=== PATIENT | female | born 2000 | race Hispanic/Latino ===

== ENCOUNTER 2025-01-28 21:19 | Emergency (ER) | payer MEDICAID ==
[~2025-01-28] VITALS: Ht 157.5 cm; Wt 91.2 kg
[2025-01-28] MEDS: PANTOPrazole 40 MG/VIAL IVP ONE (22:05)
[2025-01-28] MEDS: 0.9% NACL 500ML IV.SOLN 500 ML IV ONE (22:06)
[2025-01-28 22:12] LABS: BASOPHILS # (AUTO) 0.05 K/uL (0.00-0.20); BASOPHILS % (AUTO) 0.4 % (0.0-5.0); EOSINOPHILS % (AUTO) 1.5 % (0.0-8.0); HEMATOCRIT 40.7 % (36-48); IMMATURE GRANULOCYTE ABSOLUTE 0.07 K/uL (0-1); LYMPHOCYTES # (AUTO) 2.3 K/uL (1.0-4.8); LYMPHOCYTES % (AUTO) 17.2 % (21.0-51.0); MEAN CORPUSCULAR HEMOGLOBIN 27.8 pg (27.0-33.0); MEAN CORPUSCULAR HGB CONC 31.9 g/dL (32.0-36.0); MONOCYTES # (AUTO) 0.9 K/uL (0.1-1.0); MONOCYTES % (AUTO) 6.8 % (3.0-13.0); NEUTROPHILS # (AUTO) 9.8 K/uL (1.8-7.7); NEUTROPHILS % (AUTO) 73.6 % (40.0-77.0); PLATELET COUNT (AUTO) 311 K/uL (130-400); RED BLOOD CELL COUNT(AUTO) 4.68 MIL/uL (4.00-5.50); RED CELL DISTRIBUTION WIDTH 13.4 % (11.0-15.5); WHITE BLOOD COUNT (AUTO) 13.3 K/uL (4.8-10.8)
--- NOTE | 2025-01-28 22:14 | ERN ---
ED Note History of Present Illness Stated Complaint: C/O ABD PAIN, VOMITING BLOOD TODAY Chief Complaint: Hematemesis/Vomiting Blood Time Seen by MD: 21:32 Dictation: This is a 24-year-old female who presented to the emergency room with complaints of severe epigastric pain, nausea and vomitings and she stated that she vomited some blood. Patient stated that she had EGD on 01/19/2025 and does not know the results yet as she has yet to follow up with Dr. Hilton. She was recommended to take omeprazole/pantoprazole as needed. I do not have the EGD results for review at this time. Patient stated that she felt discomfort in the epigastric area and vomited with small amounts of specks of blood in the emesis. Family was concerned and brought her in to the ER for evaluation Temperature 98.6� pulse 57 respirations 20 blood pressure 109/63 with a pulse oximetry of 98% on room air She only carries a diagnosis of gastritis where it is unclear if she has peptic ulcer disease or H pylori. Patient also indicated that she had an ultrasound of the abdomen yesterday that the results are not available at this time. Allergies: Coded Allergies: No Known Allergies (Unverified Allergy, Unknown, 01/28/25) Home Meds Active Scripts Dicyclomine HCl (Bentyl) 20 Mg Tab, 1 TAB PO BID for irritable bowel symptoms for 3 Days, #7 TAB 0 Refills Prov:SHERRY TOMLINSON MD 01/28/25 Ondansetron (Ondansetron Odt) 4 Mg Tab.rapdis, 4 MG PO Q6HPRN PRN for nausea, #16 TAB 0 Refills Prov:SHERRY TOMLINSON MD 01/28/25 Past Medical History Past Medical History: Other Additional Past Medical Hx: GASTRITIS Surgical History: Other Surgical History Other: UPPER ABD ENDOSCOPY (01/19/2025) Family History: Negative Social History: Negative RN Note Reviewed/Agreed w/PFSH: Yes Review of System Dictation Constitutional: Negative for fever,chills, and weight loss Eyes: Negative for injury, pain,redness, and discharge ENT: Negative for injury,pain or swelling Cardiovascular: Negative for chest pain, palpitations, and edema Respiratory: Negative for shortness of breath, cough, and wheezing, Abdomen/GI: Positive for abdominal pain, nausea, vomiting, denies diarrhea, and constipation. Positive for very small amounts of specks of vomitings blood. Back: Negative for injury and pain : Negative for injury, bleeding and discharge MS/Extremity: Negative for injury and deformity Skin: Negative for rash, and discoloration Neuro: Negative for headache, weakness, numbness, tingling, and seizure Psych: Negative for suicide ideation, homicidal ideation, and hallucinations Initial Vital Sign VS Vital Signs Date Time Temp Pulse Resp B/P (MAP) Pulse Ox O2 Delivery O2 Flow Rate FiO2 01/28/25 21:24 98.6 57 20 109/63 99 Room Air 01/28/25 22:00 0 21 Physical Exam Dictation General: awake, alert, NAD Head/Face: Normocephalic, atraumatic Eyes: PERRL, EOMI, vision at baseline ENT: oral cavity clear, TMs clear, no signs of infection Neck: Trachea midline, supple, no nuchal rigidity Cardiovascular: RRR, normal S1/S2, No MRGs, no JVD Respiratory: CTAB, no respiratory distress, No rales or wheezes Abdomen: Soft, non-tender, non-distended, normal bowel sounds, no guarding or rebound. Skin: Warm, dry, normal turgor, no rash MS/Extremity: Pulses equal, no cyanosis, neurovascular intact, FROM Neuro: COAx4, GCS 15, strength 5/5, CN 2-12 intact, normal cerebellar exam, normal gait, Psych: Normal behavior, mood, and affect normal Extremities-trace edema without any palpable cords, Homans sign is negative Results (Laboratory/Radiology) Laboratory/Radiology Laboratory Tests Test 01/28/25 21:56 White Blood Count 13.3 K/uL (4.8-10.8) H Red Blood Count 4.68 MIL/uL (4.00-5.50) Hemoglobin 13.0 g/dL (12.0-16.0) Hematocrit 40.7 % (36-48) Mean Corpuscular Volume 87.0 fL (79-99) Mean Corpuscular Hemoglobin 27.8 pg (27.0-33.0) Mean Corpuscular Hemoglobin Concent 31.9 g/dL (32.0-36.0) L Red Cell Distribution Width 13.4 % (11.0-15.5) Platelet Count 311 K/uL (130-400) Mean Platelet Volume 10.4 fL (7.5-10.5) Immature Granulocyte % (Auto) 0.5 % (0-1) Neutrophils (%) (Auto) 73.6 % (40.0-77.0) Lymphocytes (%) (Auto) 17.2 % (21.0-51.0) L Monocytes (%) (Auto) 6.8 % (3.0-13.0) Eosinophils (%) (Auto) 1.5 % (0.0-8.0) Basophils (%) (Auto) 0.4 % (0.0-5.0) Neutrophils # (Auto) 9.8 K/uL (1.8-7.7) H Lymphocytes # (Auto) 2.3 K/uL (1.0-4.8) Monocytes # (Auto) 0.9 K/uL (0.1-1.0) Eosinophils # (Auto) 0.20 K/uL (0.00-0.70) Basophils # (Auto) 0.05 K/uL (0.00-0.20) Absolute Immature Granulocyte (auto 0.07 K/uL (0-1) Nucleated Red Blood Cells 0.0 % (0.0-0.19) Sodium Level 139 mmol/L (136-145) Potassium Level 4.1 mmol/L (3.5-5.1) Chloride Level 105 mmol/L (101-111) Carbon Dioxide Level 29 mmol/L (21-32) Blood Urea Nitrogen 14 mg/dL (7-18) Creatinine 0.7 mg/dL (0.5-1.0) Glomerular Filtration Rate Calc 122 mL/min (>90) Random Glucose 108 mg/dL (70-105) H Total Calcium 8.9 mg/dL (8.5-10.1) Serum Test, Qualitative NEGATIVE (NEGATIVE) Labs Reviewed?: Yes ED Course ED Course Orders Procedure Category Date Status Time Cbc With Differential LAB 01/28/25 Complete 21:39 Testing, LAB 01/28/25 Complete Serum Hcg 21:39 Pantoprazole 40mg Inj PHA 01/28/25 Complete (Protonix 40mg Inj 22:00 Basic Metabolic Panel LAB 01/28/25 Complete 21:39 0.9% Nacl 500ml PHA 01/28/25 Complete Iv.Soln (Ns 500ml 22:00 Ondansetron 4mg Inj PHA 01/28/25 Complete (Zofran 4mg Inj) 22:34 Ondansetron 4mg Inj PHA 01/28/25 Complete (Zofran 4mg Inj) 22:36 Morphine 2mg Syg PHA 01/28/25 Complete (Morphine 2mg Syg) 23:00 Current Medications Medications (Trade) Dose Ordered Sig/Ori Route PRN Reason Start Time Stop Time Status Last Admin Dose Admin Morphine Sulfate (morPHINE 2MG SYG) 2 mg ONCE ONCE IVP 01/28/25 23:00 01/28/25 23:03 DC Ondansetron HCl (zoFRAN 4MG INJ) 4 mg ONCE STAT IVP 01/28/25 22:34 01/28/25 22:37 DC 01/28/25 22:41 Ondansetron HCl (zoFRAN 4MG INJ) 4 mg STK-MED ONCE .ROUTE 01/28/25 22:36 01/28/25 22:36 DC Pantoprazole Sodium (PROTonix 40MG INJ) 40 mg ONCE ONCE IVP 01/28/25 22:00 01/28/25 22:01 DC 01/28/25 22:05 Sodium Chloride 500 ml @ 0 mls/hr ONCE ONCE IV 01/28/25 22:00 01/28/25 22:01 DC 01/28/25 22:06 Vital Signs Date Time Temp Pulse Resp B/P (MAP) Pulse Ox O2 Delivery O2 Flow Rate FiO2 01/29/25 00:05 98.1 62 14 114/72 99 Room Air* 0 21 01/28/25 23:05 98.6 56 18 112/66 100 Room Air* 0 21 01/28/25 22:00 98.6 56 18 112/66 100 Room Air* 0 21 01/28/25 21:24 98.6 57 20 109/63 99 Room Air We will perform diagnostic labs, advanced imaging and administer medications according to the patient's complaint. Once the results are available, will review and personally interpreted the labs to rule out any acute life- threatening emergency the trach require immediate intervention and treatment. I will then re-evaluate the patient after treatment and diagnostic exams have return to determine whether the patient requires any further testing, can safely be discharged home or need further admission to hospital for additional treatment and evaluation. Medical Decision Making MDM MDM: Differential diagnosis: Gastritis, peptic ulcer disease, H pylori infection, esophagitis Rationale: Tests considered and ordered secondary to shared decision making include: Previous outside records reviewed: Old ER visits. Risk of complication and/or morbidity or mortality of patient management: None Medications-Per medication reconciliation Need for hospitalization: Patient does not meet criteria for hospitalization. Need for emergency major/minor surgery: No There are no social concerns with this patient. Prescription drug management Prescriptions will include symptomatic care Patient's prior external medical records from other ER visits were reviewed by me as indicated. Prior testing and results from previous visits were reviewed. Prior tests were taken into account with medical decision making and resource utilization, independent historian/historians were used to obtain complete medical history. I independently interpreted the test that were performed, results were reviewed by me and considered findings on radiology if ordered. Medical management and examination interpretation discussions were had by me with other qualified healthcare professionals as indicated for the patient's care. Problem List Problem List: (1) Nausea & vomiting (2) Gastritis DX & DISP Disposition: Discharge Departure Impression: Primary Impression: Gastritis Additional Impression: Nausea & vomiting Condition: Stable Scripts Dicyclomine HCl (Bentyl) 20 Mg Tab 1 TAB PO BID for irritable bowel symptoms for 3 Days, #7 TAB 0 Refills Prov: SHERRY TOMLINSON MD 01/28/25 Ondansetron (Ondansetron Odt) 4 Mg Tab.rapdis 4 MG PO Q6HPRN PRN for nausea, #16 TAB 0 Refills Prov: SHERRY TOMLINSON MD 01/28/25 Additional Instructions: Patient and the caregiver have been informed of all the diagnostic tests and the imaging conducted during the today's visit to the emergency room and has verbalized understanding of the results I have personally reviewed and interpreted all diagnostic exams performed here in the ER today as well as the vital signs documented by the nursing staff. The patient is now being discharged to home and should follow up with the primary care physician or the specialist as directed by the ER staff. Follow-up with primary care provider in 1 to 2 days. Take medications as directed here in the emergency room. Okay to continue home medications unless otherwise discussed during your visit in the emergency room today. Return to y our nearest emergency room if symptoms worsen or if there is no improvement. Call 911 if you need immediate assistance. Take Tylenol or Motrin [id number] as needed and if no contraindications are present. Increase oral hydration. A wound culture or urine culture was ordered here in the emergency room department please follow-up with primary care provider and advise them to get repeat ports from our facility. If you had any Ye wrap/splints that were applied here, please do not remove them until you see your primary care or specialty. Patient is scheduled to see the GI doctor for follow-up of EGD and ultrasound results Referrals: SELF,REFERRAL (PCP) SHERRY TOMLINSON MD January 28, 2025 22:14
[2025-01-28 22:21] LABS: CREATININE 0.7 mg/dL (0.5-1.0); POTASSIUM 4.1 mmol/L (3.5-5.1)
[2025-01-28] MEDS: ondanSETRON 4MG INJ IVP STA (22:41)
[2025-01-28] MEDS: ondanSETRON 4MG INJ ONE (22:41)
[2025-01-28] MEDS ORDERED: ONDA-243 PO (23:54)
[2025-01-28] MEDS ORDERED: DICY20TA2 PO (23:54)
[2025-01-29 00:05] VITALS: BP 114/72; PULSE 62; RESP 14; TEMP 98.1; O2SAT 99
[2025-01-29] MEDS: morPHINE 2 MG SYG IVP ONE (00:21)
== END 2025-01-29 00:30 | disposition home or self-care (01) ==
LOC: EDH 21:19
DX: K29.70 Gastritis, unspecified, without bleeding (principal); Z79.899 Other long term (current) drug therapy
CPT/HCPCS: 99284; 96374; 96375; 80048; 84703; 85025; 36415; J7040; J2405; J2470

== ENCOUNTER 2025-05-06 09:23 | Inpatient (IN) | payer SELFPAY ==
[~2025-05-06] VITALS: Ht 157.5 cm; Wt 87.1 kg
[~2025-05-06 09:23] MED LIST: DICY20TA2 PO; ONDA-243 PO
--- NOTE | 2025-05-06 09:32 | ERN ---
General Chief Complaint: Abdominal Pain Stated Complaint: ABDOMINAL PAIN Time Seen by MD: 09:24 Source: patient History of Present Illness Initial Comments Patient is a 24-year-old female coming in complaining of epigastric and right quadrant pain. Per patient she was told couple of months ago with a she had gallstones. 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 Allergies: Coded Allergies: No Known Allergies (Unverified Allergy, Unknown, 01/28/25) Home Meds Active Scripts Dicyclomine HCl (Bentyl) 20 Mg Tab, 1 TAB PO BID for irritable bowel symptoms for 3 Days, #7 TAB 0 Refills Prov:SHERRY TOMLINSON MD 01/28/25 Ondansetron (Ondansetron Odt) 4 Mg Tab.rapdis, 4 MG PO Q6HPRN PRN for nausea, #16 TAB 0 Refills Prov:SHERRY TOMLINSON MD 01/28/25 Past Medical History Past Medical History: Other Medical History Other: GASTRITIS Past Surgical History: Other Surgical History Other: UPPER ABD ENDOSCOPY (01/19/2025) Family History Family History: Negative Social History Social History: Negative Results Laboratory and Microbiology Lab and Micro Result Laboratory Tests Test 05/06/25 09:37 05/06/25 10:19 White Blood Count 10.2 K/uL (4.8-10.8) Red Blood Count 4.78 MIL/uL (4.00-5.50) Hemoglobin 13.1 g/dL (12.0-16.0) Hematocrit 40.6 % (36-48) Mean Corpuscular Volume 84.9 fL (79-99) Mean Corpuscular Hemoglobin 27.4 pg (27.0-33.0) Mean Corpuscular Hemoglobin Concent 32.3 g/dL (32.0-36.0) Red Cell Distribution Width 14.0 % (11.0-15.5) Platelet Count 332 K/uL (130-400) Mean Platelet Volume 10.2 fL (7.5-10.5) Immature Granulocyte % (Auto) 0.5 % (0-1) Neutrophils (%) (Auto) 63.3 % (40.0-77.0) Lymphocytes (%) (Auto) 25.0 % (21.0-51.0) Monocytes (%) (Auto) 8.7 % (3.0-13.0) Eosinophils (%) (Auto) 2.0 % (0.0-8.0) Basophils (%) (Auto) 0.5 % (0.0-5.0) Neutrophils # (Auto) 6.5 K/uL (1.8-7.7) Lymphocytes # (Auto) 2.6 K/uL (1.0-4.8) Monocytes # (Auto) 0.9 K/uL (0.1-1.0) Eosinophils # (Auto) 0.20 K/uL (0.00-0.70) Basophils # (Auto) 0.05 K/uL (0.00-0.20) Absolute Immature Granulocyte (auto 0.05 K/uL (0-1) Nucleated Red Blood Cells 0.0 % (0.0-0.19) Sodium Level 134 mmol/L (136-145) L Potassium Level 3.4 mmol/L (3.5-5.1) L Chloride Level 104 mmol/L (101-111) Carbon Dioxide Level 28 mmol/L (21-32) Blood Urea Nitrogen 15 mg/dL (7-18) Creatinine 0.9 mg/dL (0.5-1.0) Glomerular Filtration Rate Calc 90 mL/min (>90) Random Glucose 112 mg/dL (70-105) H Total Calcium 8.8 mg/dL (8.5-10.1) Total Bilirubin 0.3 mg/dL (0.2-1.0) Aspartate Amino Transf (AST/SGOT) 20 U/L (10-37) Alanine Aminotransferase (ALT/SGPT) 28 U/L (12-78) Alkaline Phosphatase 95 U/L (50-136) Total Protein 7.2 g/dL (6.0-8.3) Albumin 3.6 g/dL (3.5-5.0) Lipase 28 U/L (16-77) Human Chorionic Gonadotropin, Quant 0 mIU/mL (0-5) Urine Color YELLOW (YELLOW) Urine Appearance CLOUDY (CLEAR) H Urine pH 5.5 (5.0-8.0) Urine Specific [place] 1.040 (1.001-1.031) Urine Protein 20 mg/dL (NEGATIVE) H Urine Glucose (UA) NEGATIVE mg/dL (NEGATIVE) Urine Ketones 5 mg/dL (NEGATIVE) H Urine Occult Blood NEGATIVE (NEGATIVE) Urine Nitrate NEGATIVE (NEGATIVE) Urine Bilirubin NEGATIVE mg/dL (NEGATIVE) Urine Urobilinogen 2.0 mg/dL (0.2-1.0) H Urine Leukocyte Esterase NEGATIVE Alberto/uL Urine RBC 2-5 /HPF (0-1) H Urine WBC 6-10 /HPF (0-1) H Urine Squamous Epithelial Cells MANY /HPF (0-2) Urine Bacteria RARE /HPF (None Seen) Urine Opiates Screen NEGATIVE (NEGATIVE) Urine Barbiturates Screen NEGATIVE (NEGATIVE) Urine Phencyclidine Screen NEGATIVE (NEGATIVE) Urine Amphetamines Screen NEGATIVE (NEGATIVE) Urine Benzodiazepines Screen NEGATIVE (NEGATIVE) Urine Cocaine Screen NEGATIVE (NEGATIVE) Urine Marijuana (THC) Screen NEGATIVE (NEGATIVE) Labs Reviewed?: Yes EKG/XRAY/US/CT/MRI Ultrasound Comment IMAGING REPORT Signed PATIENT: YAAKOV ARCHULETA MR#: [id number] : 2000 SEX: F AGE: 24 LOCATION: [facility] ORDER 7 STATUS: [facility] REPORT#: [id number] SERVICE 5 REASON: Adominal Pain ORDERING PHYSICIAN: AUGUSTINA STROUD MD PROCEDURE: ABDRUQLTD - US ABDOMINAL RUQ\LTD US ABDOMINAL RUQ\E\LTD HISTORY: Adominal Pain 24-year-old female with abdominal pain COMPARISON: None FINDINGS: There is normal sonographic appearance of the liver. There are no focal liver masses. The liver is not enlarged.There are multiple gallstones and sludge seen in the gallbladder. The gallbladder wall thickness is normal. The gallbladder wall thickness is 0.2 cm.. Common duct is normal. The common bile duct measures 0.5 cm. Right kidney is normal with no evidence of mass, hydronephrosis or stone.The pancreas is normal size normal echotexture. There is no mass or free fluid seen in the right upper quadrant. IMPRESSION: 1. Cholelithiasis DICTATED BY: GERMANIA ALEGRIA MD DATE: 05/06/25 1031 ELECTRONICALLY SIGNED BY: GERMANIA ALEGRIA MD DATE: 05/06/[address] Scan Comment IMAGING REPORT Signed PATIENT: YAAKOV ARCHULETA MR#: [id number] : 2000 SEX: F AGE: 24 LOCATION: ED ORDER 1036 STATUS: REG ER REPORT#: [id number] SERVICE 1035 REASON: abd pain ORDERING PHYSICIAN: AUGUSTINA STROUD MD PROCEDURE: ABD PEL WO - CT ABDOMEN/PELVIS W/O CONTRAST CT ABDOMEN/PELVIS W/O CONTRAST REASON: abd pain COMPARISON: None. FINDINGS: Lung bases are clear. There are no focal liver lesions. There are normal-appearing kidneys.. Spleen and pancreas appear unremarkable. The gallbladder appears normal as well. Bowel loops appear unremarkable. This includes normal appearance of the appendix There is no evidence of free fluid or intraperitoneal air. There are no focal fluid collections. Aorta and retroperitoneum appear normal as do pelvic soft tissue structures. The anterior abdominal wall is intact. Osseous structures appear unremarkable. 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 There is no mass or free fluid seen in the pelvis. IMPRESSION: 1. Negative noncontrast CT abdomen and pelvis. CT was performed with one or more following dose reduction techniques: automated exposure control, adjustment of the mA and kv according to patient's size, or use of a iterative reconstruction technique. DICTATED BY: GERMANIA ALEGRIA MD DATE: 05/06/25 115 ELECTRONICALLY SIGNED BY: GERMANIA ALEGRIA MD DATE: 05/06/25 115 [facility] MDM: Differential diagnosis: Intractable nausea and vomiting, abdominal pain, cholelithiasis, Rationale: Tests considered and ordered secondary to shared decision making include: labs, ECG and radiology Previous outside records reviewed: Old ER visits. Risk of complication and/or morbidity or mortality of patient management: None Medications-Per medication reconciliation Need for hospitalization: Patient does meet criteria for hospitalization. Need for emergency major/minor surgery: No There are no social concerns with this patient. Prescription drug management Prescriptions will include symptomatic care Patient's prior external medical records from other ER visits were reviewed by me as indicated. Prior testing and results from previous visits were reviewed. Prior tests were taken into account with medical decision making and resource utilization, independent historian/historians were used to obtain complete medic al history. I independently interpreted the test that were performed, results were reviewed by me and considered findings on radiology if ordered. Medical management and examination interpretation discussions were had by me with other qualified healthcare professionals as indicated for the patient's care. She will be admitted under the care of hospitalist group for ongoing management. ED Course Orders Procedure Category Date Status Time Cbc With Differential LAB 05/06/25 Complete 09: Comprehensive LAB 05/06/25 Complete Metabolic Panel 09: Hcg,Quantitative LAB 05/06/25 Complete 09: Urinalysis Profile LAB 05/06/25 Complete 09:26 Us Abdominal Ruq\Ltd US 05/06/25 Resulted 09:26 Lipase LAB 05/06/25 Complete 09: 0.9%Nacl 1000ml (Ns PHA 05/06/25 Complete 1000ml) 09:30 Pantoprazole 40mg Inj PHA 05/06/25 Complete (Protonix 40mg Inj 09:30 Drug Screen Urine LAB 05/06/25 Complete 09:26 Ondansetron 4mg Inj PHA 05/06/25 Complete (Zofran 4mg Inj) 10:12 Ondansetron 4mg Inj PHA 05/06/25 Complete (Zofran 4mg Inj) 10:30 Ct Abdomen/Pelvis W/O CT 05/06/25 Resulted Contrast 10:35 Ondansetron 4mg Inj PHA 05/06/25 Complete (Zofran 4mg Inj) 11:00 Culture Urine ESTELA 05/06/25 In Process 10:43 Promethazine Hcl PHA 05/06/25 Complete (Phenergan) 12:00 Promethazine Hcl PHA 05/06/25 Complete (Phenergan) 11:47 Current Medications Medications (Trade) Dose Ordered Sig/Ori Route PRN Reason Start Time Stop Time Status Last Admin Dose Admin Ondansetron HCl (zoFRAN 4MG INJ) 4 mg ONCE ONCE IVP 05/06/25 10:30 05/06/25 10:31 DC 05/06/25 10:23 Ondansetron HCl (zoFRAN 4MG INJ) 4 mg ONCE ONCE IVP 05/06/25 11:00 05/06/25 11:01 DC 05/06/25 10:44 Ondansetron HCl (zoFRAN 4MG INJ) 4 mg STK-MED ONCE .ROUTE 05/06/25 10:12 05/06/25 10:12 DC Pantoprazole Sodium (PROTonix 40MG INJ) 40 mg ONCE ONCE IVP 05/06/25 09:30 05/06/25 09:31 DC 05/06/25 09:34 Promethazine HCl (Phenergan) 25 mg ONCE ONCE IM 05/06/25 12:00 05/06/25 12:01 DC 05/06/25 11:51 Promethazine HCl (Phenergan) 25 mg STK-MED ONCE IM 05/06/25 11:47 05/06/25 11:47 DC Sodium Chloride 1,000 ml @ 0 mls/hr ONCE ONCE IV 05/06/25 09:30 05/06/25 09:31 DC 05/06/25 09:34 Vital Signs Date Time Temp Pulse Resp B/P (MAP) Pulse Ox O2 Delivery O2 Flow Rate FiO2 05/06/25 11:25 97.7 55 18 138/68 100 Room Air* 0 21 05/06/25 09:29 97.7 60 16 122/49 98 Room Air* 0 21 05/06/25 09:25 97.7 60 16 122/49 98 Room Air 0 DX & DISP Disposition: Inpatient Decision to Admit Time: 12:16 Departure Impression: Primary Impression: Nausea & vomiting Additional Impression: Cholelithiasis Condition: Stable Referrals: SELF,REFERRAL (PCP) AUGUSTINA STROUD MD May 06, 2025 09:32
[2025-05-06] MEDS: 0.9%NACL 1000ML 1,000 ML IV ONE (09:34)
[2025-05-06 09:46] LABS: IMMATURE GRANULOCYTE ABSOLUTE 0.05 K/uL (0-1); NUCLEATED RED BLOOD CELLS 0.0 % (0.0-0.19); PLATELET COUNT (AUTO) 332 K/uL (130-400); RED BLOOD CELL COUNT(AUTO) 4.78 MIL/uL (4.00-5.50); RED CELL DISTRIBUTION WIDTH 14.0 % (11.0-15.5); WHITE BLOOD COUNT (AUTO) 10.2 K/uL (4.8-10.8)
[2025-05-06 10:19] LABS: ASPARTATE AMINOTRANSFERASE 20.0 U/L (10-37); CREATININE 0.9 mg/dL (0.5-1.0); GLOMERULAR FILTR. RATE CALC 90.0 mL/min (>90); GLUCOSE,RANDOM 112.0 mg/dL (70-105); HCG,QUANTITATIVE 0.0 mIU/mL (0-5); SODIUM SERUM 134.0 mmol/L (136-145); TOTAL PROTEIN, SERUM 7.2 g/dL (6.0-8.3); UREA NITROGEN, BLOOD 15.0 mg/dL (7-18)
[2025-05-06 10:34] LABS: AMPHET/METH SCREEN,URINE NEGATIVE (NEGATIVE); BARBITURATE SCREEN, URINE NEGATIVE (NEGATIVE); CANNABINOID SCREEN,URINE NEGATIVE (NEGATIVE); COCAINE SCREEN,URINE NEGATIVE (NEGATIVE)
--- NOTE | 2025-05-06 10:35 | HMCIMG ---
US ABDOMINAL RUQ\E\LTD HISTORY: Adominal Pain 24-year-old female with abdominal pain COMPARISON: None FINDINGS: There is normal sonographic appearance of the liver. There are no focal liver masses. The liver is not enlarged.There are multiple gallstones and sludge seen in the gallbladder. The gallbladder wall thickness is normal. The gallbladder wall thickness is 0.2 cm.. Common duct is normal. The common bile duct measures 0.5 cm. Right kidney is normal with no evidence of mass, hydronephrosis or stone.The pancreas is normal size normal echotexture. There is no mass or free fluid seen in the right upper quadrant. IMPRESSION: 1. Cholelithiasis
[2025-05-06 10:37] LABS: APPEARANCE,URINE CLOUDY (CLEAR); GLUCOSE, URINE (UA) NEGATIVE (NEGATIVE); LEUKOCYTE ESTERASE ,URINE NEGATIVE Leu/uL (NEGATIVE); NITRATE,URINE NEGATIVE (NEGATIVE); OCCULT BLOOD,URINE NEGATIVE (NEGATIVE)
[2025-05-06 10:39] LABS: ADD UA MICROSCOPIC YES
[2025-05-06 10:41] LABS: SQUAMOUS EPITHELIAL CELL,UR MANY /HPF (0-2)
[2025-05-06] MEDS: PROMETHAZINE HCL 25 MG/ML 1ML AMPULE IM ONE ×2 (11:51)
--- NOTE | 2025-05-06 11:57 | HMCIMG ---
CT ABDOMEN/PELVIS W/O CONTRAST REASON: abd pain COMPARISON: None. FINDINGS: Lung bases are clear. There are no focal liver lesions. There are normal-appearing kidneys.. Spleen and pancreas appear unremarkable. The gallbladder appears normal as well. Bowel loops appear unremarkable. This includes normal appearance of the appendix There is no evidence of free fluid or intraperitoneal air. There are no focal fluid collections. Aorta and retroperitoneum appear normal as do pelvic soft tissue structures. The anterior abdominal wall is intact. Osseous structures appear unremarkable. The LUNG SPLITTER structures appears to be normal. There is no mass or free fluid seen in the pelvis. IMPRESSION: 1. Negative noncontrast CT abdomen and pelvis. CT was performed with one or more following dose reduction techniques: automated exposure control, adjustment of the mA and kv according to patient's size, or use of a iterative reconstruction technique.
--- NOTE | 2025-05-06 12:25 | NUR ---
MED REC: PATIENT STATES DOES NOT TAKE ANY ORDERED MEDICATIONS
--- NOTE | 2025-05-06 12:36 | HP ---
[facility] HISTORY AND PHYSICAL Date of Service: May 06, 2025 Time of Service: 12:36 HISTORY OF PRESENT ILLNESS: Date of service: 05/06/2025 24-year-old male with underlying history of gastritis, history of cholelithiasis, Syncope (since the age of 1), who presented to the ER for further evaluation of epigastric right upper quadrant abdominal pain. Patient states that symptoms started close to 6:30 a.m. today and has been accompanied by nausea, vomiting and persistent nonresolving. Reports having eaten Frito Pie close to dinner last night. That she has been the ER several times over the last few months due to issues of nausea and vomiting She has been previously told that she has cholelithiasis. Previously has undergone endoscopy by Dr. Hilton close to December,. Symptoms have not been improving. Patient reports having history of syncope since the age of [age]. she denies cardiac history. Syncope happens about once every three months and is treated conservatively. Denies being on any medications. Denies history of seizures or epilepsy. On presentation to the hospital, patient was noted to be afebrile and hemodynamically stable. CBC was unremarkable on presentation. BMP showed sodium of 134, potassium 3.4, CO2 of 28, BUN of 15, creatinine of 0.9. Urinalysis showed cloudy urine with mild pyuria. Patient will be admitted for further treatment and management of recurrent biliary colic with underlying cholelithiasis. She will undergo HIDA scan to rule out acute/chronic cholecystitis. Consultation with General surgery will be requested this admission. REVIEW OF SYSTEMS CONSTITUTIONAL: Denies fevers, chills, or night sweats. No unintentional weight loss reported. NEUROLOGICAL: Denies headache, amaurosis fugax, motor weakness, sensory deficit, vertigo/spinning sensation, gait abnormalities, or tremors. ENT: No hearing loss, otalgia, otorrhea, rhinitis, rhinorrhea, hoarseness, or sore throat. CARDIOVASCULAR: History of syncope PULMONARY: Denies any shortness of breath, cough, phlegm/sputum, hemoptysis, pleuritic chest pain. SLEEP: Denies morning headaches, daytime somnolence or napping. Denies difficulty falling asleep, staying asleep, waking from sleep. Denies knowledge of snoring. GASTROINTESTINAL: Nausea, vomiting, abdominal pain involving the right upper quadrant and epigastric region GENITOURINARY: Denies frequency, urgency, nocturia, hematuria or incontinence (Storage/Irritative symptoms.) Low urinary stream, straining to void, urinary intermittency or hesitancy, splitting of the voiding stream, terminal dribbling. ENDOCRINOLOGIC: Denies polyuria, polydipsia, polyphagia or heat/cold intolerances. HEMATOLOGIC: Denies thrombophilia/previous clots, or coagulopathy/bleeding disorders. ONCOLOGIC: Denies personal history of malignancy. DERMATOLOGIC: Denies rashes or pruritus. PSYCHIATRIC: Denies any suicidal or homicidal ideation. Denies hallucinations. 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 NEUROLOGICAL: Cranial nerves II-XII grossly intact. Motor is 5/5 in bilateral upper and lower extremities proximal to distal. No sensory deficits. HEENT: Face is symmetric. Pupils are equal and reactive. Extraocular movements are intact. NECK: Supple. No JVD. No thyromegaly. No submental, submandibular, pre- /postauricular, occipital or supraclavicular lymphadenopathy. CHEST: Normal chest expansion. No Telemetry. LUNGS: Absence of any rales, rhonchi or any wheezing. CARDIOVASCULAR: Regular. S1 and S2 normal. No appreciable rubs, murmurs or gallops. ABDOMEN: Soft, mild tenderness to palpation of the epigastric region, mild tenderness to right upper quadrant region on palpation with no Fisher's sign noted : Deferred. No Harrison. EXTREMITIES: Non-edematous and not cyanotic. No clubbing. Good capillary refill. SKIN: No skin breakdown. Vital Sign (Last 24 Hours) 05/06/25 11:25 Temp 97.7 Pulse 55 Resp 18 B/P (MAP) 138/68 Pulse Ox 100 O2 Delivery Room Air* O2 Flow Rate 0 FiO2 21 LABS: Laboratory: Test 05/06/25 10:19 05/06/25 09:37 Range/Units Urine Color YELLOW YELLOW Urine Appearance CLOUDY H CLEAR Urine pH 5.5 5.0-8.0 Urine Specific [place] 1.040 H 1.001-1.031 Urine Protein 20 H NEGATIVE mg/dL Urine Glucose (UA) NEGATIVE NEGATIVE mg/dL Urine Ketones 5 H NEGATIVE mg/dL Urine Occult Blood NEGATIVE NEGATIVE Urine Nitrate NEGATIVE NEGATIVE Urine Bilirubin NEGATIVE NEGATIVE mg/dL Urine Urobilinogen 2.0 H 0.2-1.0 mg/dL Urine Leukocyte Esterase NEGATIVE NEGATIVE Alberto/uL Urine RBC 2-5 H 0-1 /HPF Urine WBC 6-10 H 0-1 /HPF Urine Squamous Epithelial Cells MANY 0-2 /HPF Urine Bacteria RARE None Seen /HPF Urine Opiates Screen NEGATIVE NEGATIVE Urine Barbiturates Screen NEGATIVE NEGATIVE Urine Phencyclidine Screen NEGATIVE NEGATIVE Urine Amphetamines Screen NEGATIVE NEGATIVE Urine Benzodiazepines Screen NEGATIVE NEGATIVE Urine Cocaine Screen NEGATIVE NEGATIVE Urine Marijuana (THC) Screen NEGATIVE NEGATIVE White Blood Count 10.2 4.8-10.8 K/uL Red Blood Count 4.78 4.00-5.50 MIL/uL Hemoglobin 13.1 12.0-16.0 g/dL Hematocrit 40.6 36-48 % Mean Corpuscular Volume 84.9 79-99 fL Mean Corpuscular Hemoglobin 27.4 27.0-33.0 pg Mean Corpuscular Hemoglobin Concent 32.3 32.0-36.0 g/dL Red Cell Distribution Width 14.0 11.0-15.5 % Platelet Count 332 130-400 K/uL Mean Platelet Volume 10.2 7.5-10.5 fL Immature Granulocyte % (Auto) 0.5 0-1 % Neutrophils (%) (Auto) 63.3 40.0-77.0 % Lymphocytes (%) (Auto) 25.0 21.0-51.0 % Monocytes (%) (Auto) 8.7 3.0-13.0 % Eosinophils (%) (Auto) 2.0 0.0-8.0 % Basophils (%) (Auto) 0.5 0.0-5.0 % Neutrophils # (Auto) 6.5 1.8-7.7 K/uL Lymphocytes # (Auto) 2.6 1.0-4.8 K/uL Monocytes # (Auto) 0.9 0.1-1.0 K/uL Eosinophils # (Auto) 0.20 0.00-0.70 K/uL Basophils # (Auto) 0.05 0.00-0.20 K/uL Absolute Immature Granulocyte (auto 0.05 0-1 K/uL Nucleated Red Blood Cells 0.0 0.0-0.19 % Sodium Level 134 L 136-145 mmol/L Potassium Level 3.4 L 3.5-5.1 mmol/L Chloride Level 104 101-111 mmol/L Carbon Dioxide Level 28 21-32 mmol/L Blood Urea Nitrogen 15 7-18 mg/dL Creatinine 0.9 0.5-1.0 mg/dL Glomerular Filtration Rate Calc 90 >90 mL/min Random Glucose 112 H 70-105 mg/dL Total Calcium 8.8 8.5-10.1 mg/dL Total Bilirubin 0.3 0.2-1.0 mg/dL Aspartate Amino Transf (AST/SGOT) 20 10-37 U/L Alanine Aminotransferase (ALT/SGPT) 28 12-78 U/L Alkaline Phosphatase 95 50-136 U/L Total Protein 7.2 6.0-8.3 g/dL Albumin 3.6 3.5-5.0 g/dL Lipase 28 16-77 U/L Human Chorionic Gonadotropin, Quant 0 0-5 mIU/mL Current Medications Medications (Trade) Dose Ordered Sig/Ori Route PRN Reason Start Time Stop Time Status Last Admin Dose Admin Acetaminophen (TYLenol 325MG TAB) 650 mg Q6H PRN PO MILD PAIN (1-3) 05/06/25 12:30 06/05/25 12:29 Ceftriaxone Sodium (ROCEphine 1G INJ) 1 gm Q24H IVPB 05/06/25 12:30 05/16/25 12:29 Enoxaparin Sodium (Lovenox) 40 mg DAILY SQ 05/07/25 09:00 06/06/25 08:59 Ketorolac Tromethamine (toRADol) 15 mg Q12H PRN IV MODERATE PAIN (4-6) 05/06/25 12:30 05/11/25 12:29 Morphine Sulfate (morPHINE 2MG SYG) 2 mg Q6H PRN IVP SEVERE PAIN (7-10) 05/06/25 12:30 05/13/25 12:29 Ondansetron HCl (zoFRAN 4MG INJ) 4 mg Q6H PRN IVP NAUSEA/VOMITING 05/06/25 12:30 06/05/25 12:29 Pantoprazole Sodium (PROTonix 40MG INJ) 40 mg DAILY IVP 05/07/25 09:00 06/06/25 08:59 Sodium Chloride 1,000 ml @ 80 mls/hr [id number] IV 05/06/25 12:30 06/05/25 12:29 DIAGNOSTICS / RADIOLOGY: SERVICE 1035 REASON: abd pain ORDERING PHYSICIAN: AUGUSTINA STROUD MD PROCEDURE: ABD PEL WO - CT ABDOMEN/PELVIS W/O CONTRAST CT ABDOMEN/PELVIS W/O CONTRAST REASON: abd pain COMPARISON: None. FINDINGS: Lung bases are clear. There are no focal liver lesions. There are normal-appearing kidneys.. Spleen and pancreas appear unremarkable. The gallbladder appears normal as well. Bowel loops appear unremarkable. This includes normal appearance of the appendix There is no evidence of free fluid or intraperitoneal air. There are no focal fluid collections. Aorta and retroperitoneum appear normal as do pelvic soft tissue structures. The anterior abdominal wall is intact. Osseous structures appear unremarkable. The FLOW MANAGER structures appears to be normal. There is no mass or free fluid seen in the pelvis. IMPRESSION: 1. Negative noncontrast CT abdomen and pelvis. CT was performed with one or more following dose reduction techniques: automated exposure control, adjustment of the mA and kv according to patient's size, or use of a iterative reconstruction technique. DICTATED BY: GERMANIA ALEGRIA MD DATE: 05/06/25 1154 ELECTRONICALLY SIGNED BY: GERMANIA ALEGRIA MD DATE: 05/06/25 115 SERVICE REASON: Adominal Pain ORDERING PHYSICIAN: AUGUSTINA STROUD MD PROCEDURE: [id number] - US ABDOMINAL RUQ\LTD US ABDOMINAL RUQ\E\LTD HISTORY: Adominal Pain 24-year-old female with abdominal pain COMPARISON: None FINDINGS: There is normal sonographic appearance of the liver. There are no focal liver masses. The liver is not enlarged.There are multiple gallstones and sludge seen in the gallbladder. The gallbladder wall thickness is normal. The gallbladder wall thickness is 0.2 cm.. Common duct is normal. The common bile duct measures 0.5 cm. Right kidney is normal with no evidence of mass, hydronephrosis or stone.The pancreas is normal size normal echotexture. There is no mass or free fluid seen in the right upper quadrant. IMPRESSION: 1. Cholelithiasis DICTATED BY: GERMANIA ALEGRIA MD DATE: 05/06/251030 ELECTRONICALLY SIGNED BY: GERMANIA ALEGRIA MD DATE: 05/06/251034 ASSESSMENT: Symptomatic biliary colic, POA Cholelithiasis, POA Rule out acute/chronic cholecystitis, POA Hyponatremia, POA, mild Urinary tract infection, mild History of syncope, since the age of [age], POA History of gastritis, POA Obesity, POA PLAN: Patient will be admitted to medical-surgical floor We will start patient on IV hydration with NS at 80 mL/hour We will start patient on IV Rocephin for mild UTI, will f/u urine culture We will obtain HIDA scan to rule out acute/chronic cholecystitis Consultation with General Surgery will be requested We will keep patient on GI prophylaxis with Protonix We will keep patient on IV Toradol for moderate pain and IV morphine for severe pain We will see how patient progresses in the next 24-48 hours DVT prophylaxis with Lovenox, GI prophylaxis with Protonix Date of service: 05/06/2025 Plan of care was discussed with patient and mother at bedside, Maxime Locke MD Advanced Care Planning: Which of the following were discussed: Hospice care: Yes __ No _X_ Therapeutic options: Yes _X_ No __ Advance directives: Yes _X_ No __ Other discussions: Discussed with who?: Patient Voluntary nature of this service was explained to the patient? Yes _x_ No __ Amount of time spent: 20 minutes MAXIME LOCKE MD May 06, 2025 12:36
[2025-05-06 13:02] LABS: INR 0.94 (0.85-1.15)
[2025-05-06] MEDS: 0.9%NACL 1000ML 1,000 ML IV SCH (13:06)
[2025-05-06] MEDS: PoTASSium chloRIDE 20MEQ ER 20 MEQ ERTAB PO ONE (13:07)
--- NOTE | 2025-05-06 14:25 | NUR ---
DCP: HOME Sw spoke to pt's mother Patty Ramirez [phone] while pt was sleeping soundly. pt lives with her brother and grand mother Milka Linton [phone] at her grandmother's home. 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 Pt does not drive, grand mother transports as needed. Pt is independent of her self care, finances and home management. No DME or in home care services at this time. No PCP, sees Dr Hilton for GI care, uses [facility] for rx needs. per mom, pt will return home at me. Addendum: 05/06/25 at 1439 by ROSA JERNIGAN Amended: Links added.
[2025-05-06 16:30] VITALS: O2SAT 99
--- NOTE | 2025-05-06 16:42 | CONS ---
CONSULT NOTE: Consulting physician:Dr Locke Consulting service: General surgery Reason for consultation: Symptomatic cholelithiasis History of present illness: This is a 24-year-old female with a history of gastritis and cholelithiasis that has been consulted to surgery for concerns of upper quadrant pain. On physical exam patient has pain in the epigastric region. Patient reports previous endoscopy in December of this year by Dr. Hilton. Patient reports compliance with PPI medication. WBCs on admission unremarkable. Patient currently pending HIDA scan and NPO Medical history: Known cholelithiasis Surgical history: Review of systems: General: No Fever, No Chills, No Night Sweats, No Fatigue, No Malaise, No Appetite, No Other HEENT: No Head Aches, No Visual Changes, No Eye Pain, No Ear Pain, No Dysphasia, No Sinus Congestion, No Post Nasal Drip, No Sore Throat, No Other Pulmonary: No Dyspnea, No Cough, No Pleuritic Chest Pain, No Other Cardiovascular: No: Chest Pain, Palpitations, Orthopnea, Paroxysmal No Dyspnea, Edema, Lt Headedness, Other Gastrointestinal: No: Nausea, Vomiting, Diarrhea, Constipation, Melena, Hematochezia, Other Genitourinary: No Dysuria, No Frequency, No Incontinence, No Hematuria, No Retention, No Other Musculoskeletal: No: other, neck pain, shoulder pain, arm pain, back pain, hand pain, leg pain, foot pain Skin: No Urticaria, No Rash, No Other Neurological: No: Weakness, Numbness, Incoordination, Change in speech, Confusion, Seizures, Other Physical exam: General: Awake alert and oriented Heart: Regular rate and rhythm} Lungs: [Clear to auscultation no distress Abdomen: epigastric discomfort Assessment: This is a 24-year-old female with possible symptomatic cholelithiasis Plan: At this point in time we will await HIDA scan results With the epigastric pain if HIDA scan negative patient may require GI consultation for possible endoscopy to rule out gastritis Patient to be kept NPO until HIDA scan complete Patient to be made NPO at midnight Surgical team to follow patient closely JA RANGEL Jr. May 06, 2025 16:42
[2025-05-06 18:15] VITALS: BP 104/55; PULSE 67; RESP 19; TEMP 97.9
--- NOTE | 2025-05-06 18:15 | NUR ---
ARRIVAL TO UNIT ARRIVED VIA WHEELCHAIR. A&OX4. NON LABORED BREATHING. REPORTS PAIN 10 TO ABDOMEN. 20G NOTED TO RT AC. UP AND JANIE. STATES HX OF PSORIASIS. REPORTS LBM: 05/05. AWARE TO MAINTAIN NPO UNTIL HIDA SCAN IS DONE. PT ACKNOWLEDGED INFORMATION. ANSWERED QUESTIONS AT THIS TIME.
[2025-05-06 19:00] VITALS: BP 113/86; PULSE 69; RESP 20; TEMP 98.5
[2025-05-06 20:00] VITALS: O2SAT 99
--- NOTE | 2025-05-06 20:00 | NUR ---
ASSESS SHIFT ASSESSMENT DONE, PLEASE REFER TO CHART. DUE MEDS ADMINISTERED, TOLERATED WELL. KEPT RESTED AND COMFORTABLE IN BED. KEPT NPO FOR HIDA SCAN TONIGHT.
--- NOTE | 2025-05-06 20:30 | NUR ---
PERCY WESTBROOK IN AND TOOK PT DOWN TO [facility].
--- NOTE | 2025-05-06 22:09 | NUR ---
BACK PT BACK IN ROOM. DENIES ANY PAINS NOR ABDOMINAL DISCOMFORT AT THIS TIME. PT ASKED TO TAKE A SHOWER. PCP IN TO ASSIST PT WITH PIV.
[2025-05-07] VITALS (25 sets, daily range): BP systolic 90–131; BP diastolic 54–78; PULSE 51–87; RESP 16–20; TEMP 97.4–98.3; O2SAT 95
--- NOTE | 2025-05-07 05:06 | NUR ---
ROUNDS PT SLEPT AT INTERVALS DURING THE SHIFT. NO DISTRESS NOTED. KEPT NPO ORDERED. KEPT RESTED AND COMFORTABLE IN BED. CALL LIGHT WITHIN REACH. FOR MORE CARE.
[2025-05-07 06:35] LABS: IMMATURE GRANULOCYTE ABSOLUTE 0.04 K/uL (0-1); NUCLEATED RED BLOOD CELLS 0.0 % (0.0-0.19); PLATELET COUNT (AUTO) 280 K/uL (130-400); RED BLOOD CELL COUNT(AUTO) 4.33 MIL/uL (4.00-5.50); RED CELL DISTRIBUTION WIDTH 13.9 % (11.0-15.5); WHITE BLOOD COUNT (AUTO) 11.9 K/uL (4.8-10.8)
[2025-05-07 06:51] LABS: CREATININE 0.7 mg/dL (0.5-1.0); GLOMERULAR FILTR. RATE CALC 122.0 mL/min (>90); GLUCOSE,RANDOM 83.0 mg/dL (70-105); SODIUM SERUM 139.0 mmol/L (136-145); UREA NITROGEN, BLOOD 6.0 mg/dL (7-18)
[2025-05-07 06:52] LABS: ASPARTATE AMINOTRANSFERASE 18.0 U/L (10-37); CREATINE KINASE, TOTAL 96.0 U/L (21-232); TOTAL PROTEIN, SERUM 6.2 g/dL (6.0-8.3)
[2025-05-07] MEDS ORDERED: ENOXAPARIN SODIUM 40 MG/0.4 ML SYRINGE SQ SCH (09:00)
--- NOTE | 2025-05-07 10:14 | HMCIMG ---
NM HIDA WO EF/CCK HISTORY: cholithiasis, r/o acute cholecystitis, r/o chronic cholecystitis/dyskinesia TECHNIQUE: The patient was injected with 6.5 Choletec FINDINGS: Imaging reveals prompt clearance of radiotracer from the cardiac blood pool. There is physiologic radiotracer activity in the liver. There is no excretion into the CBD and small bowel. The gallbladder was visualized. IMPRESSION: No excretion in common bile duct and small bowel the study was carried for 60 minutes. Suggesting of cholecystitis
--- NOTE | 2025-05-07 11:06 | PN ---
[facility] PROGRESS NOTE Date of Service: May 07, 2025 Time of Service: 10:[address] Lundy SUBJECTIVE: [ 05/06 24-year-old male with underlying history of gastritis, history of cholelithiasis, Syncope (since the age of 1), who presented to the ER for further evaluation of epigastric right upper quadrant abdominal pain. Patient states that symptoms started close to 6:30 a.m. today and has been accompanied by nausea, vomiting and persistent nonresolving. Reports having eaten Frito Pie close to dinner last night. That she has been the ER several times over the last few months due to issues of nausea and vomiting She has been previously told that she has cholelithiasis. Undergone previous endoscopy by Dr. Hilton close to December,. Symptoms have not been improving. Patient having history of syncope since the age of [age]. she denies cardiac history. Syncope happens about once every three months and is treated conservatively. Denies being on any medications. Denies history of seizures or epilepsy. On presentation to the hospital, patient was noted to be afebrile and hemodynamically stable. CBC was unremarkable on presentation. BMP showed sodium of 134, potassium 3.4, CO2 of 28, BUN of 15, creatinine of 0.9. Urinalysis showed cloudy urine with mild pyuria. Patient will be admitted for further treatment and management of recurrent biliary colic with underlying cholelithiasis. He will undergo HIDA scan to rule out acute/chronic cholecystitis. Consultation with General surgery will be requested this admission. 05/07/2025 patient was seen by nurse practitioner and physician during rounding in room 323. Patient's HIDA scan came back and that is showing possibility of cholecystitis. We are pending further evaluation/recommendation by surgeon. Urine came back contaminated. WBC 11.9 we will continue Rocephin in the meantime. Patient denies any shortness of breath, chest pain, nausea, vomiting. A.m. labs] REVIEW OF SYSTEMS CONSTITUTIONAL: Denies fevers, chills, or night sweats. No unintentional weight loss reported. NEUROLOGICAL: Denies headache, amaurosis fugax, motor weakness, sensory deficit, vertigo/spinning sensation, gait abnormalities, or tremors. ENT: No hearing loss, otalgia, otorrhea, rhinitis, rhinorrhea, hoarseness, or sore throat. CARDIOVASCULAR: History of syncope PULMONARY: Denies any shortness of breath, cough, phlegm/sputum, hemoptysis, pleuritic chest pain. SLEEP: Denies morning headaches, daytime somnolence or napping. Denies difficulty falling asleep, staying asleep, waking from sleep. Denies knowledge of snoring. GASTROINTESTINAL: Denies any nausea, vomiting or abdominal pain GENITOURINARY: Denies frequency, urgency, nocturia, hematuria or incontinence (Storage/Irritative symptoms.) Low urinary stream, straining to void, urinary intermittency or hesitancy, splitting of the voiding stream, terminal dribbling. ENDOCRINOLOGIC: Denies polyuria, polydipsia, polyphagia or heat/cold intolerances. HEMATOLOGIC: Denies thrombophilia/previous clots, or coagulopathy/bleeding disorders. ONCOLOGIC: Denies personal history of malignancy. DERMATOLOGIC: Denies rashes or pruritus. PSYCHIATRIC: Denies any suicidal or homicidal ideation. Denies hallucinations. PHYSICAL EXAM GENERAL APPEARANCE: The patient is awake, alert, and oriented, in no acute cardiopulmonary distress. NEUROLOGICAL: Cranial nerves II-XII grossly intact. Motor is 5/5 in bilateral upper and lower extremities proximal to distal. No sensory deficits. HEENT: Face is symmetric. Pupils are equal and reactive. Extraocular movements are intact. NECK: Supple. No JVD. No thyromegaly. No submental, submandibular, pre- /postauricular, occipital or supraclavicular lymphadenopathy. CHEST: Normal chest expansion. No Telemetry. LUNGS: Absence of any rales, rhonchi or any wheezing. CARDIOVASCULAR: Regular. S1 and S2 normal. No appreciable rubs, murmurs or gallops. ABDOMEN: Soft, mild tenderness to palpation of the epigastric region, mild tenderness to right upper quadrant region on palpation with no Fisher's sign noted : Deferred. No Harrison. EXTREMITIES: Non-edematous and not cyanotic. No clubbing. Good capillary refill. SKIN: No skin breakdown. Vital Signs (last 8hr) Date Time Temp Pulse Resp B/P (MAP) Pulse Ox O2 Delivery O2 Flow Rate FiO2 05/07/25 08:09 98.2 68 18 99/63 96 Room Air 05/07/25 04:35 98.2 55 20 107/65 98 Room Air LABS: Laboratory: Test 05/07/25 06:21 05/06/25 10:19 05/06/25 09:37 Range/Units White Blood Count 11.9 H 4.8-10.8 K/uL Red Blood Count 4.33 4.00-5.50 MIL/uL Hemoglobin 12.0 12.0-16.0 g/dL Hematocrit 35.9 L 36-48 % Mean Corpuscular Volume 82.9 79-99 fL Mean Corpuscular Hemoglobin 27.7 27.0-33.0 pg Mean Corpuscular Hemoglobin Concent 33.4 32.0-36.0 g/dL Red Cell Distribution Width 13.9 11.0-15.5 % Platelet Count 280 130-400 K/uL Mean Platelet Volume 10.5 7.5-10.5 fL Immature Granulocyte % (Auto) 0.3 0-1 % Neutrophils (%) (Auto) 64.8 40.0-77.0 % Lymphocytes (%) (Auto) 24.3 21.0-51.0 % Monocytes (%) (Auto) 8.6 3.0-13.0 % Eosinophils (%) (Auto) 1.7 0.0-8.0 % Basophils (%) (Auto) 0.3 0.0-5.0 % Neutrophils # (Auto) 7.7 1.8-7.7 K/uL Lymphocytes # (Auto) 2.9 1.0-4.8 K/uL Monocytes # (Auto) 1.0 0.1-1.0 K/uL Eosinophils # (Auto) 0.20 0.00-0.70 K/uL Basophils # (Auto) 0.04 0.00-0.20 K/uL Absolute Immature Granulocyte (auto 0.04 0-1 K/uL Nucleated Red Blood Cells 0.0 0.0-0.19 % Sodium Level 139 136-145 mmol/L Potassium Level 3.3 L 3.5-5.1 mmol/L Chloride Level 107 101-111 mmol/L Carbon Dioxide Level 25 21-32 mmol/L Blood Urea Nitrogen 6 L 7-18 mg/dL Creatinine 0.7 0.5-1.0 mg/dL Glomerular Filtration Rate Calc 122 >90 mL/min Random Glucose 83 70-105 mg/dL Total Calcium 8.0 L 8.5-10.1 mg/dL Magnesium Level 2.00 1.80-2.40 mg/dL Total Bilirubin 0.6 # 0.2-1.0 mg/dL Direct Bilirubin 0.1 0.0-0.3 mg/dL Aspartate Amino Transf (AST/SGOT) 18 10-37 U/L Alanine Aminotransferase (ALT/SGPT) 23 12-78 U/L Alkaline Phosphatase 67 # 50-136 U/L Total Creatine Kinase 96 21-232 U/L Total Protein 6.2 6.0-8.3 g/dL Albumin 3.0 L 3.5-5.0 g/dL Amylase Level 31 25-115 U/L Lipase 17 16-77 U/L Urine Color YELLOW YELLOW Urine Appearance CLOUDY H CLEAR Urine pH 5.5 5.0-8.0 Urine Specific [place] 1.040 H 1.001-1.031 Urine Protein 20 H NEGATIVE mg/dL Urine Glucose (UA) NEGATIVE NEGATIVE mg/dL Urine Ketones 5 H NEGATIVE mg/dL Urine Occult Blood NEGATIVE NEGATIVE Urine Nitrate NEGATIVE NEGATIVE Urine Bilirubin NEGATIVE NEGATIVE mg/dL Urine Urobilinogen 2.0 H 0.2-1.0 mg/dL Urine Leukocyte Esterase NEGATIVE NEGATIVE Alberto/uL Urine RBC 2-5 H 0-1 /HPF Urine WBC 6-10 H 0-1 /HPF Urine Squamous Epithelial Cells MANY 0-2 /HPF Urine Bacteria RARE None Seen /HPF Urine Opiates Screen NEGATIVE NEGATIVE Urine Barbiturates Screen NEGATIVE NEGATIVE Urine Phencyclidine Screen NEGATIVE NEGATIVE Urine Amphetamines Screen NEGATIVE NEGATIVE Urine Benzodiazepines Screen NEGATIVE NEGATIVE Urine Cocaine Screen NEGATIVE NEGATIVE Urine Marijuana (THC) Screen NEGATIVE NEGATIVE Prothrombin Time 10.0 9.6-11.6 SEC Prothromb Time International Ratio 0.94 0.85-1.15 Activated Partial Thromboplast Time 30.8 26.3-35.5 SEC C-Reactive Protein, Quantitative 30.00 H 0.5-3.0 mg/L Procalcitonin < 0.05 L 0.05-0.5 ng/mL Thyroid Stimulating Hormone (TSH) 3.52 0.36-3.74 uIU/mL Human Chorionic Gonadotropin, Quant 0 0-5 mIU/mL Current Medications Medications (Trade) Dose Ordered Sig/Ori Route PRN Reason Start Time Stop Time Status Last Admin Dose Admin Acetaminophen (TYLenol 325MG TAB) 650 mg Q6H PRN PO MILD PAIN (1-3) 05/06/25 12:30 9/13/25 12:29 Ceftriaxone Sodium (ROCEphine 1G INJ) 1 gm Q24H IVPB 05/06/25 12:30 05/16/25 12:29 05/06/25 13:06 1 GM Enoxaparin Sodium (Lovenox) 40 mg DAILY SQ 05/07/25 09:00 05/06/25 21:06 DC Enoxaparin Sodium (Lovenox) 40 mg HS SQ 05/07/25 21:00 06/06/25 08:59 Ketorolac Tromethamine (toRADol) 15 mg Q12H PRN IV MODERATE PAIN (4-6) 05/06/25 12:30 05/11/25 12:29 Morphine Sulfate (morPHINE 2MG SYG) 2 mg Q6H PRN IVP SEVERE PAIN (7-10) 05/06/25 12:30 05/13/25 12:29 05/06/25 13:06 2 MG Ondansetron HCl (zoFRAN 4MG INJ) 4 mg Q6H PRN IVP NAUSEA/VOMITING 05/06/25 12:30 06/05/25 12:29 Pantoprazole Sodium (PROTonix 40MG INJ) 40 mg DAILY IVP 05/07/25 09:00 06/06/25 08:59 05/07/25 08:20 40 MG Sodium Chloride 1,000 ml @ 80 mls/hr [id number] IV 05/06/25 12:30 06/05/25 12:29 05/07/25 00:20 80 MLS/HR DIAGNOSTICS / RADIOLOGY: [ ] ASSESSMENT: Symptomatic biliary colic, POA Cholelithiasis, POA acute/chronic cholecystitis, as per HIDA scan POA Hyponatremia, POA, mild Acute complicated cystitis POA History of syncope, since the age of [age], POA History of gastritis, POA Obesity, POA PLAN: Continue in medical-surgical floor Continue IV hydration with NS at 80 mL/hour Continued IV Rocephin for mild UTI, will f/u urine culture HIDA scan positive for possible cholecystitis Pending further recommendations as per surgeon We will keep patient on GI prophylaxis with Protonix We will keep patient on IV Toradol for moderate pain and IV morphine for severe pain We will see how patient progresses in the next 24-48 hours DVT prophylaxis with Lovenox, GI prophylaxis with Protonix Urine culture contaminated ATTESTATION BY PHYSICIAN I have seen and examined the patient. I reviewed the documentation, medical decision making, and treatment plan as noted by the mid-level provider above. I agree with the findings and plan of care. ANDREW LUNDY MD, KATARZYNA B SKILLED LABORER May 07, 2025 11:06
[2025-05-07] MEDS ORDERED: MIDAZOLAM HCL 1 MG/ML 2ML VIAL ONE (16:16)
--- NOTE | 2025-05-07 16:43 | NUR ---
PT AOX4 DENIES PAIN TAKEN VIA BED OXYGRAPH OPERATOR ROSITA FOR SURG PROCEDURE STABLE CONS. CONSENT DONE
[2025-05-07] MEDS: INDOCYANINE GREEN 25 MG VIAL IJ ONE (16:46)
[2025-05-07] MEDS: CALDOLOR 800MG+NS 250ML 250 ML IV ONE (16:49)
[2025-05-07] MEDS ORDERED: MAGNESIUM SULFATE 1 GM/2 ML VIAL ONE (16:52)
[2025-05-07] MEDS ORDERED: LIDOCAINE 1%-EPI 1:100,000 20 ML VIAL ONE (16:52)
[2025-05-07] MEDS ORDERED: NEOSTIGMINE METHYLSULFATE 1MG/ML IV ONE (18:00)
[2025-05-07] MEDS ORDERED: GLYCOPYRROLATE 0.2 MG/ML 5 ML VIAL ONE (18:00)
--- NOTE | 2025-05-07 19:13 | NUR ---
RECEIVED PT BACK IN ROOM. PT STILL VERY SLEEPY BUT COHERENT WHEN CONVERSING. SHIFT ASSESSMENT DONE, PLEASE REFER TO CHART. PLACED ON IVF OF NS REGULATED AT 80CC/HR. POST OP V/S STARTED, STABLE. KEPT COMFORTABLE IN BED WITH HOB ELEVATED. PT INFORMED THAT SHE WILL BE STARTED ON CLEAR LIQUIDS WHEN SHE GETS MORE AWAKE.
[2025-05-07] MEDS: ENOXAPARIN SODIUM 40 MG/0.4 ML SYRINGE SQ SCH (20:02)
--- NOTE | 2025-05-07 23:45 | NUR ---
WALK PT REQUESTED TO USE THE BATHROOM. PT ABLE TO AMBULATE WITH MINIMAL ASSIST. PT URINATED WITHOUT ANY DIFFICULTY. STILL NO PASSAGE OF GAS. ASSISTED TO GET COMFORTABLE IN BED. CALL LIGHT WITHIN REACH. STARTED ON CLEAR LIQUIDS, TOLERATED WELL.
[2025-05-08 00:15] VITALS: BP 115/80; PULSE 65
--- NOTE | 2025-05-08 00:21 | NUR ---
PAIN RT CHETAN IN AND COACHED PT ON IS USE, ABLE TO DO 1000 VOLUME BUT UNABLE TO DO 10 BREATHS DUE TO POST OP PAINS. MEDICATED WITH MORPHINE IV. WILL RE-ASSESS PT.
[2025-05-08 01:15] VITALS: BP 117/75; PULSE 67; RESP 18; TEMP 98
--- NOTE | 2025-05-08 04:14 | NUR ---
ASSIST PCP ASSISTED PT TO THE RESTROOM BUT GOT DIZZY AND FATS AND OILS LOADER HELPED TO WALK PT BACK TO BED. RE-POSITIONED COMFORTABLY IN BED. PT CLAIMS OF HAVING BURPED ALREADY. VERBALIZES HAVING POST OP PAINS. MEDICATED WITH TORADOL IV. WILL RE-ASSESS PT.
[2025-05-08 04:18] VITALS: BP 126/76; PULSE 70; RESP 17; TEMP 98.3
[2025-05-08 05:24] LABS: NUCLEATED RED BLOOD CELLS 0.0 % (0.0-0.19); PLATELET COUNT (AUTO) 272.0 K/uL (130-400); RED BLOOD CELL COUNT(AUTO) 3.73 MIL/uL (4.00-5.50); RED CELL DISTRIBUTION WIDTH 14.0 % (11.0-15.5); WHITE BLOOD COUNT (AUTO) 13.3 K/uL (4.8-10.8)
[2025-05-08 05:51] LABS: ASPARTATE AMINOTRANSFERASE 82.0 U/L (10-37); CREATININE 0.7 mg/dL (0.5-1.0); GLOMERULAR FILTR. RATE CALC 122.0 mL/min (>90); GLUCOSE,RANDOM 106.0 mg/dL (70-105); SODIUM SERUM 139.0 mmol/L (136-145); TOTAL PROTEIN, SERUM 5.7 g/dL (6.0-8.3); UREA NITROGEN, BLOOD 5.0 mg/dL (7-18)
[2025-05-08 07:45] VITALS: BP 117/69; PULSE 79; RESP 18; TEMP 99.4
[2025-05-08 08:00] VITALS: O2SAT 95
[2025-05-08] MEDS ORDERED: 0.9%NACL 50ML IV SCH (08:00)
[2025-05-08] MEDS: ZOSYN 3.375GM +NS 50ML IVPB SCH (08:24)
[2025-05-08 10:49] LABS: NUCLEATED RED BLOOD CELLS 0.0 % (0.0-0.19); PLATELET COUNT (AUTO) 277.0 K/uL (130-400); RED BLOOD CELL COUNT(AUTO) 3.71 MIL/uL (4.00-5.50); RED CELL DISTRIBUTION WIDTH 14.1 % (11.0-15.5); WHITE BLOOD COUNT (AUTO) 12.6 K/uL (4.8-10.8)
[2025-05-08 11:19] VITALS: BP 107/64; PULSE 75; RESP 18; TEMP 100.1
[2025-05-08] MEDS ORDERED: AMOX1TAB16 PO (11:25)
--- NOTE | 2025-05-08 11:30 | DS ---
Discharge Summary Hospital Course Summary: DATE OF ADMISSION:[05/06/2025] DATE OF DISCHARGE:[05/08/2025] DISPOSITION:[Home] CONDITION:[Medically stable] CONSULTANTS:[General surgeon] FOLLOW UP APPOINTMENTS:[PCP2 to 3 days. The general surgeon within one week] PROCEDURES:[Cholecystectomy 05/07/2025] IMAGING: report attached to summary MICROBIOLOGY: report attached to summary ACTIVITY:[ independent] HOME MEDICATIONS: see [facility] NEW MEDICATIONS:[[id number] mg p.o. b.i.d. x7 days] EMERGENCY INSTRUCTIONS: The patient was instructed to present to the nearest Emergency departmentr or call 911 once their symptoms will return or worsen Radio Tester(s): Patient is 24 years old female who came to emergency department with a complaint of nausea, vomiting, right upper abdominal pain. CT abdomen/pelvis was performed on admission and was negative. Ultrasound abdomen showed cholelithiasis HIDA scan came back positive for cholecystitis. General surgeon was consulted and today 05/07/25 performed cholecystectomy. Today patient is eating GI soft diet and is tolerating well. Patient was cleared to be discharged home and follow up outpatient within one week. Patient's WBC is elevated at 12.6 and patient will be discharged on [id number] mg p.o. b.i.d. x7 days. Patient was also advised to follow up outpatient with the PCP in2 to 3 days. Procedure(s): REVIEW OF SYSTEMS CONSTITUTIONAL: Denies fevers, chills, or night sweats. No unintentional weight loss reported. NEUROLOGICAL: Denies headache, amaurosis fugax, motor weakness, sensory deficit, vertigo/spinning sensation, gait abnormalities, or tremors. ENT: No hearing loss, otalgia, otorrhea, rhinitis, rhinorrhea, hoarseness, or sore throat. CARDIOVASCULAR: History of syncope PULMONARY: Denies any shortness of breath, cough, phlegm/sputum, hemoptysis, pleuritic chest pain. SLEEP: Denies morning headaches, daytime somnolence or napping. Denies difficulty falling asleep, staying asleep, waking from sleep. Denies knowledge of snoring. GASTROINTESTINAL: Denies any nausea, vomiting or abdominal pain GENITOURINARY: Denies frequency, urgency, nocturia, hematuria or incontinence (Storage/Irritative symptoms.) Low urinary stream, straining to void, urinary intermittency or hesitancy, splitting of the voiding stream, terminal dribbling. ENDOCRINOLOGIC: Denies polyuria, polydipsia, polyphagia or heat/cold intolerances. HEMATOLOGIC: Denies thrombophilia/previous clots, or coagulopathy/bleeding disorders. ONCOLOGIC: Denies personal history of malignancy. DERMATOLOGIC: Denies rashes or pruritus. PSYCHIATRIC: Denies any suicidal or homicidal ideation. Denies hallucinations. PHYSICAL EXAM GENERAL APPEARANCE: The patient is awake, alert, and oriented, in no acute cardiopulmonary distress. NEUROLOGICAL: Cranial nerves II-XII grossly intact. Motor is 5/5 in bilateral upper and lower extremities proximal to distal. No sensory deficits. HEENT: Face is symmetric. Pupils are equal and reactive. Extraocular movements are intact. NECK: Supple. No JVD. No thyromegaly. No submental, submandibular, pre- /postauricular, occipital or supraclavicular lymphadenopathy. CHEST: Normal chest expansion. No Telemetry. LUNGS: Absence of any rales, rhonchi or any wheezing. CARDIOVASCULAR: Regular. S1 and S2 normal. No appreciable rubs, murmurs or gallops. ABDOMEN: Soft, mild tenderness to palpation of the epigastric region, mild tenderness to right upper quadrant region on palpation with no Fisher's sign noted : Deferred. No Harrison. EXTREMITIES: Non-edematous and not cyanotic. No clubbing. Good capillary refill. SKIN: No skin breakdown. Assessment/Plan: ASSESSMENT: Symptomatic biliary colic, POA Cholelithiasis, POA acute/chronic cholecystitis, as per HIDA scan POA Hyponatremia, POA, mild Acute complicated cystitis POA History of syncope, since the age of [age], POA History of gastritis, POA Obesity, POA Home Medications: Discontinued Scripts Dicyclomine HCl (Bentyl) 20 Mg Tab, 1 TAB PO BID for irritable bowel symptoms for 3 Days, #7 TAB 0 Refills Prov:SHERRY TOMLINSON MD 01/28/25 Ondansetron (Ondansetron Odt) 4 Mg Tab.rapdis, 4 MG PO Q6HPRN PRN for nausea, #16 TAB 0 Refills Prov:SHERRY TOMLINSON MD 01/28/25 Time spent arranging discharge: 31-60 minutes ATTESTATION BY PHYSICIAN I have seen and examined the patient. I reviewed the documentation, medical decision making, and treatment plan as noted by the mid-level provider above. I agree with the findings and plan of care. ANDREW RITCHIE MD, KATARZYNA B ROSE GRADER May 08, 2025 11:30
--- NOTE | 2025-05-08 12:31 | PN ---
GENERAL SURGERY PROGRESS NOTE Date/Time Patient Seen: [ 05/08/2025 10:15 AM] Problem List: [24-year-old female, postop day 1., lap cholecystectomy by Dr. Noyola] Interval History: [ Patient states she is doing significantly better Expected tenderness over surgical incisions Patient has been tolerating liquid diet Patient and mother report patient has been ambulating and passing gas, no bowel movement yet WBCs slightly increased as expected postop, 12.6 Stable H&H 10.5 and 31.5 LFTs also slightly increased postop but has normal bilirubin of 0.5 Surgical dressings dry and intact] Current Medications Medications (Trade) Dose Ordered Sig/Ori Route Start Time Stop Time Status Last Admin Dose Admin Ceftriaxone Sodium (ROCEphine 1G INJ) 1 gm Q24H IVPB 05/06/25 12:30 05/08/25 07:22 DC 05/07/25 13:42 1 GM Enoxaparin Sodium (Lovenox) 40 mg DAILY SQ 05/07/25 09:00 05/06/25 21:06 DC Enoxaparin Sodium (Lovenox) 40 mg HS SQ 05/07/25 21:00 06/06/25 08:59 05/07/25 20:02 40 MG Pantoprazole Sodium (PROTonix 40MG INJ) 40 mg DAILY IVP 05/07/25 09:00 06/06/25 08:59 05/08/25 08:24 40 MG Piperacillin Sod/ Tazobactam Sod (Zosyn 3.375gm+NS 50ml) 3.375 gm Q8H IVPB 05/08/25 07:30 05/18/25 07:29 05/08/25 08:24 3.375 GM Sodium Chloride 1,000 ml @ 80 mls/hr [id number] IV 05/06/25 12:30 06/05/25 12:29 05/08/25 03:29 80 MLS/HR Sodium Chloride (NS 50ml) 50 ml AD IV 05/08/25 08:00 05/08/25 07:23 DC Physical Examination: GENERAL: [No acute distress, female, comfortably resting in bed, mother at bedside.] HEAD: [Normocephalic.] EYES: [Nonicteric sclera bilaterally.] ENT: [Hearing grossly intact.] NECK: [Supple.] LUNGS: [Clear breath sounds bilaterally.] HEART: [Normal rate and rhythm.] VASC: [Peripheral pulses +2 bilaterally.] ABD: [Abdomen is soft, nondistended, surgical dressings dry and intact, no guarding or rigidity.] : [Not examined] EXT: [No edema.] SKIN: [No rashes or lesions noted.] NEURO: [Awake, alert, and oriented x3. No focal sensory or strength deficits noted.] Vital Signs (last 8hr) Date Time Temp Pulse Resp B/P (MAP) Pulse Ox O2 Delivery O2 Flow Rate FiO2 05/08/25 11:19 100.0 75 18 107/64 100 Room Air 05/08/25 07:45 99.3 79 18 117/69 95 Room Air Laboratory: [ ] Hematology Labs: Test 05/08/25 10:46 05/07/25 06:21 Range/Units White Blood Count 12.6 H 4.8-10.8 K/uL Red Blood Count 3.71 L 4.00-5.50 MIL/uL Hemoglobin 10.5 L 12.0-16.0 g/dL Hematocrit 31.2 L 36-48 % Mean Corpuscular Volume 84.1 79-99 fL Mean Corpuscular Hemoglobin 28.3 27.0-33.0 pg Mean Corpuscular Hemoglobin Concent 33.7 32.0-36.0 g/dL Red Cell Distribution Width 14.1 11.0-15.5 % Platelet Count 277 130-400 K/uL Mean Platelet Volume 10.2 7.5-10.5 fL Nucleated Red Blood Cells 0.0 0.0-0.19 % Immature Granulocyte % (Auto) 0.3 0-1 % Neutrophils (%) (Auto) 64.8 40.0-77.0 % Lymphocytes (%) (Auto) 24.3 21.0-51.0 % Monocytes (%) (Auto) 8.6 3.0-13.0 % Eosinophils (%) (Auto) 1.7 0.0-8.0 % Basophils (%) (Auto) 0.3 0.0-5.0 % Neutrophils # (Auto) 7.7 1.8-7.7 K/uL Lymphocytes # (Auto) 2.9 1.0-4.8 K/uL Monocytes # (Auto) 1.0 0.1-1.0 K/uL Eosinophils # (Auto) 0.20 0.00-0.70 K/uL Basophils # (Auto) 0.04 0.00-0.20 K/uL Absolute Immature Granulocyte (auto 0.04 0-1 K/uL Chemistry Labs: Test 05/08/25 05:12 05/07/25 06:21 Range/Units Sodium Level 139 136-145 mmol/L Potassium Level 3.9 3.5-5.1 mmol/L Chloride Level 107 101-111 mmol/L Carbon Dioxide Level 20 L 21-32 mmol/L Blood Urea Nitrogen 5 L 7-18 mg/dL Creatinine 0.7 0.5-1.0 mg/dL Glomerular Filtration Rate Calc 122 >90 mL/min Random Glucose 106 H 70-105 mg/dL Total Calcium 7.6 L 8.5-10.1 mg/dL Total Bilirubin 0.5 0.2-1.0 mg/dL Aspartate Amino Transf (AST/SGOT) 82 H 10-37 U/L Alanine Aminotransferase (ALT/SGPT) 73 # 12-78 U/L Alkaline Phosphatase 76 50-136 U/L Total Protein 5.7 L 6.0-8.3 g/dL Albumin 2.7 L 3.5-5.0 g/dL Magnesium Level 2.00 1.80-2.40 mg/dL Direct Bilirubin 0.1 0.0-0.3 mg/dL Total Creatine Kinase 96 21-232 U/L Amylase Level 31 25-115 U/L Lipase 17 16-77 U/L Diagnostics / Radiology: [Copy/Paste Echos/Imaging Report here] Impression and Plan: [ 24-year-old female, postop day 1., lap cholecystectomy by Dr. Noyola Clinically, patient is doing significantly better Tolerating diet without any complaints of nausea or vomiting Patient has been passing gas but no bowel movement Encouraged to continue ambulating and doing IS exercises From surgical standpoint, patient may be discharged home when tolerating soft diet and cleared by hospitalist No driving for 1 week No lifting more than 15 lb for 4 weeks Surgical dressings may be removed on Saturday, cleansed surgical incisions with mild soap and water, leave open to air Avoid using any creams, lotions or ointments to surgical incisions Instructed on signs of infections to report Office follow-up with Dr. Noyola in [address] Noyola updated on patient's status] ATTESTATION BY PHYSICIAN I have seen and examined the patient. I reviewed the documentation, medical decision making, and treatment plan as noted by the mid-level provider above. I agree with the findings and plan of care. MD MONTY GRIMALDO LETICIA A YEAST WASHER May 08, 2025 12:31
== END 2025-05-08 16:10 | disposition home or self-care (01) | DRG 445 ==
LOC: EDH 09:23 → EDHIP 09:24 → UNDOADMIN 12:21 → EDHIP 12:21 → 3DH 18:15
PROVIDERS: ADMIT Internal Medicine; ATTEND Internal Medicine
DX: K80.12 Calculus of gallbladder with acute and chronic cholecystitis without obstruction (principal); E87.1 Hypo-osmolality and hyponatremia; N30.00 Acute cystitis without hematuria; K29.70 Gastritis, unspecified, without bleeding; F17.210 Nicotine dependence, cigarettes, uncomplicated; E66.9 Obesity, unspecified; Z68.35 Body mass index [BMI] 35.0-35.9, adult
CPT/HCPCS: 36415; 74176; 76705; 78226; 80048; 80053; 80076; 80305; 81001; 82150; 82550; 83690; 83735; 84145; 84443; 84702; 85025; 85027; 85610; 85730; 86140; 87086; 99285; A4450; A9537; G0378; J0696; J1650; J1741; J1885; J2250; J2270; J2405; J2470; J2543; J2550; J2704; J2710; J2795; J3010; J3475; J3490; J7030; A4215; A4649; A4930; C1769